=== PATIENT | male | born 1970 | race Caucasian/White ===

== ENCOUNTER 2016-08-31 19:27 | Emergency (ER) | payer BC ==
[~2016-08-31] VITALS: Ht 182.9 cm; Wt 69.6 kg
[2016-08-31 21:55] VITALS: BP 138/83
== END 2016-08-31 21:57 | disposition home or self-care (01) ==
LOC: EME 19:27
DX: S01.01XA Laceration without foreign body of scalp, initial encounter (principal); W22.09XA Striking against other stationary object, initial encounter; W45.0XXA Nail entering through skin, initial encounter; Z23 Encounter for immunization
CPT/HCPCS: 99281; 99284